=== PATIENT | male | born 1965 | race African-American/Black ===

== ENCOUNTER 2017-06-08 02:36 | Emergency (ER) | payer OTHER ==
[~2017-06-08] VITALS: Ht 190.5 cm; Wt 106.6 kg
--- NOTE | ~2017-06-08 | EKG ---
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: ZANDER : 1965 Requested By: Yandy Blackmon Order Number: [id number] MD: Giovanni Ruiz Measurements Intervals [place] Rate: 68 P: 45 ME: 175 QRS: -27 QRSD: 101 T: 12 QT: 414 QTc: 441 Interpretive Statements Sinus rhythm Borderline left axis deviation Baseline wander in lead(s) I,III,aVL Compared to ECG 07/27/2012 23:29:15 No significant changes Electronically Signed On 06-08-2017 8:03:07 CDT by Giovanni Ruiz [email or web address] <ELECTRONICALLY SIGNED> By: Giovanni Ruiz MD, [facility] 06/08/17 08 0244 0244 Giovanni Ruiz MD, [facility] /EPI
[~2017-06-08 02:36] MED LIST: BENICAR40 MG PO; MAXZIDE 75-501 EAC1; NORCO 5-325 TA1 EACH PO
[2017-06-08 03:06] LABS: HEMATOCRIT 36.4 % (42.0-52.0); HEMOGLOBIN 12.3 gm/dL (14.0-18.0); MCH 31.5 pg (26.0-34.0); MCHC 33.7 g/dL (28.0-37.0); MCV 93.5 fL (80.0-100.0); PLATELET COUNT 361 thou/uL (150-400); RBC 3.89 mil/uL (4.50-6.00); RDW 14.7 % (10.5-14.5); WBC 8.2 thou/uL (4.0-11.0)
[2017-06-08] MEDS ORDERED: WELLBUTRIN SR150 MG PO (03:12)
[2017-06-08] MEDS ORDERED: MAXZIDE-25 MG1 EACH PO (03:13)
[2017-06-08] MEDS ORDERED: ARIPIPRAZOLE10 MG PO (03:14)
[2017-06-08] MEDS ORDERED: COZAAR 50 MG TA50 M2 PO (03:16)
[2017-06-08] MEDS ORDERED: TETRACYCLINE H250 MG PO (03:17)
[2017-06-08 03:24] LABS: MANUAL DIFF YES
[2017-06-08 03:29] LABS: ANION GAP 10 mmol/L (7-16); BUN 17 mg/dL (7-18); CALCIUM 7.2 mg/dL (8.5-10.1); CHLORIDE 109 mmol/L (98-107); CO2 21 mmol/L (21-32); CREATININE 1.6 mg/dL (0.7-1.3); GLUCOSE 93 mg/dL (74-106); POTASSIUM 3.1 mmol/L (3.5-5.1); SODIUM 140 mmol/L (136-145)
[2017-06-08 03:38] LABS: ALBUMIN 1.1 g/dL (3.4-5.0); ALKALINE PHOSPHATASE 106 U/L (46-116); DIRECT BILIRUBIN < 0.1 mg/dL (<0.1-0.3); SGOT 23 U/L (15-37); SGPT 17 U/L (30-65); TOTAL BILIRUBIN 0.3 mg/dL (<0.1-1.0); TOTAL PROTEIN 3.7 g/dL (6.4-8.2); TROPONIN-I < 0.04 ng/mL (<0.04-0.07)
[2017-06-08 03:48] LABS: ABSOLUTE NEUTROPHILS 2.6 thou/uL (1.4-8.2); TOTAL CELL COUNT 100
[2017-06-08] MEDS ORDERED: PEPCID40 MG PO (05:00)
[2017-06-08] MEDS ORDERED: NORCO 5-325 TA1 EACH PO (05:05)
[2017-06-08 05:10] VITALS: BP 126/92
[2017-06-08] MEDS ORDERED: ZOFRAN ODT4 MG PO (15:44)
== END 2017-06-08 05:11 | disposition home or self-care (01) ==
LOC: ER 02:36
PROVIDERS: Emergency Medicine
DX: K21.9 Gastro-esophageal reflux disease without esophagitis (principal); R07.9 Chest pain, unspecified; I10 Essential (primary) hypertension; M19.90 Unspecified osteoarthritis, unspecified site; F17.210 Nicotine dependence, cigarettes, uncomplicated; Z98.890 Other specified postprocedural states

== ENCOUNTER 2017-06-08 11:35 | Emergency (ER) | payer OTHER ==
[~2017-06-08] VITALS: Ht 190.5 cm; Wt 104.3 kg
[~2017-06-08 11:35] MED LIST changes: +ARIPIPRAZOLE10 MG PO; +COZAAR 50 MG TA50 M2 PO; +MAXZIDE-25 MG1 EACH PO; +PEPCID40 MG PO; +TETRACYCLINE H250 MG PO; +WELLBUTRIN SR150 MG PO
[2017-06-08 12:19] LABS: ABSOLUTE NEUTROPHILS 2.6 thou/uL (1.4-8.2); BASOPHILS 1.6 % (0.0-2.0); EOSINOPHILS 1.7 % (0.0-3.0); HEMATOCRIT 39.5 % (42.0-52.0); HEMOGLOBIN 13.7 gm/dL (14.0-18.0); LYMPHOCYTES 52.4 % (24.0-44.0); MCH 32.1 pg (26.0-34.0); MCHC 34.6 g/dL (28.0-37.0); MCV 92.8 fL (80.0-100.0); PLATELET COUNT 422 thou/uL (150-400); POLYS 37.3 % (36.0-66.0); RBC 4.26 mil/uL (4.50-6.00); RDW 15.1 % (10.5-14.5); WBC 7.1 thou/uL (4.0-11.0)
[2017-06-08 12:24] LABS: MANUAL DIFF NO
[2017-06-08 14:29] LABS: CALCIUM 8.7 mg/dL (8.5-10.1); CREATININE 1.7 mg/dL (0.7-1.3)
[2017-06-08 14:30] LABS: POTASSIUM 4.3 mmol/L (3.5-5.1)
[2017-06-08 14:35] LABS: URINE BILIRUBIN NEGATIVE (Negative); URINE BLOOD 1+ (Negative); URINE COLOR YELLOW; URINE GLUCOSE-RANDOM* NEGATIVE (Negative); URINE KETONES NEGATIVE (Negative); URINE LEUKOCYTES-REFLEX NEGATIVE (Negative); URINE PROTEIN (DIPSTICK) 3+ (Negative); URINE UROBILINOGEN 0.2 E.U./dl (0.2-1.0)
[2017-06-08 14:44] LABS: CASTS None Seen /LPF (None Seen); CRYSTALS None Seen /LPF (None Seen); SQUAMOUS None Seen /LPF (0-3); URINE RBC 0-2 Rare /HPF (0-2); URINE WBC-REFLEX 0-5 Rare /HPF (0-5)
[2017-06-08 14:50] LABS: ALBUMIN 1.5 g/dL (3.4-5.0); TOTAL BILIRUBIN 0.4 mg/dL (<0.1-1.0)
[2017-06-08] MEDS ORDERED: ZOFRAN ODT4 MG PO (15:44)
[2017-06-08 16:03] VITALS: BP 109/64
== END 2017-06-08 16:04 | disposition home or self-care (01) ==
LOC: ER 11:35
PROVIDERS: Emergency Medicine
DX: K29.00 Acute gastritis without bleeding (principal); I10 Essential (primary) hypertension; E78.00 Pure hypercholesterolemia, unspecified; M19.90 Unspecified osteoarthritis, unspecified site; F17.210 Nicotine dependence, cigarettes, uncomplicated; Z90.49 Acquired absence of other specified parts of digestive tract; Z98.890 Other specified postprocedural states

== ENCOUNTER 2017-06-10 08:11 | Observation (INO) | payer OTHER ==
[~2017-06-10] VITALS: Ht 190.5 cm; Wt 104.3 kg
--- NOTE | ~2017-06-10 | EKG ---
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 : 1965 Requested By: Brian Tejada Order Number: [id number] MD: Giovanni Ruiz Measurements Intervals [place] Rate: 64 P: 51 [place]: 174 QRS: -38 QRSD: 100 T: 18 QT: 423 QTc: 437 Interpretive Statements Sinus rhythm Left axis deviation Poor R wave progression Compared to ECG 06/08/2017 02:44:23 No significant change was found Electronically Signed On 06-12-2017 13:35:22 CDT by Giovanni Ruiz [email or web address] <ELECTRONICALLY SIGNED> By: Giovanni Ruiz MD, [facility] 06/12/17 1335 1226 122 Giovanni Ruiz MD, [facility] /EPI
--- NOTE | ~2017-06-10 | HC ---
[facility] [place] [address] CONSULTATION Name: PAULETTE HAYWARD Caden Room #: 422-P [facility] Luz Morrison#: [id number] Admission: 06/10/17 Attend Phys: Jo Ann You Discharge: 06/13/17 Date of : 61 Report #: [id number] THIS REPORT FOR: //name// CC: Jo Ann Quezada DATE OF SERVICE: 06/11/2017 REQUESTING PROVIDER: Jo Ann You MD REASON FOR CONSULTATION: GERD. HISTORY OF PRESENT ILLNESS: This is a 51-year-old male who has been experiencing approximately 3-4 weeks of intermittent fairly severe upper abdominal pain. When it originally began, he presented to [facility] and he ended up having a cholecystectomy at that time thinking that this was biliary in source. Unfortunately, his symptoms have continued where every 2-3 days he has fairly significant upper abdominal discomfort. Sometimes it wakes him up at night and then it generally just goes away for 2 or 3 days and then it recurs. The patient has had an EGD done just about 3 weeks ago as well at [facility]. He was told things looked okay, but he was diagnosed with H. pylori. Details of this are unknown. All of these things were done at [facility]; none of that was done here. The patient presented to this Emergency Department yesterday and has been admitted for further evaluation. PAST MEDICAL HISTORY: Pertinent for the above-noted cholecystectomy. He has also had a hip arthroplasty as well as back surgeries. He is disabled because of chronic back pain apparently. CURRENT MEDICATIONS: Include fentanyl, morphine, Pepcid, Abilify, Wellbutrin, Cozaar, MiraLax that is being given p.r.n., Zofran p.r.n., Ambien p.r.n. ALLERGIES: There are no known drug allergies. FAMILY AND SOCIAL HISTORY: Noncontributory. PHYSICAL EXAMINATION: ABDOMEN: Soft. Bowel sounds are present and normoactive. No hepatosplenomegaly. No masses palpated. There is tenderness in the epigastrium without peritoneal signs. VITAL SIGNS: Unremarkable. He has been afebrile. LABORATORY DATA: Electrolytes are normal. BUN is normal, creatinine is 1.9. AST is 39, lipase is 131, total bilirubin is 0.3, alkaline phosphatase is 138, ALT is 25, albumin is 1.6. White count is normal, hemoglobin is 13.4, platelet count is 404,000. [address] [address] CONSULTATION Name: PAULETTE HAYWARD Room #: 422-P [facility] Morrison#: [id number] Admission: 06/10/17 Attend Phys: Jo Ann You Discharge: 06/13/17 Date of : 61 Report #: [id number] IMPRESSION: Recurrent upper abdominal pain that predates a cholecystectomy. The patient just had an EGD about 3 weeks ago, he reports, at [facility]. There is apparent notion that I would be doing an EGD now, but he just had one 3 weeks ago. Etiology of his recurrent pain is unclear at this time. RECOMMENDATIONS: 1. Increase MiraLax to a scheduled dose of 3 times a day for now. 2. Add an empiric proton pump inhibitor b.i.d. 3. Okay to feed. 4. Check hepatobiliary scan to rule out a bile leak pending that further thoughts. <ELECTRONICALLY SIGNED> By: Kip Grove MD 06/14/17 1005 0636 1327 Graham Ramos MD /nt
[~2017-06-10 08:11] MED LIST changes: +ZOFRAN ODT4 MG PO
[2017-06-10 08:12] VITALS: BP 142/100
[2017-06-10 08:39] LABS: ABSOLUTE NEUTROPHILS 5.4 thou/uL (1.4-8.2); BASOPHILS 1.4 % (0.0-2.0); EOSINOPHILS 1.9 % (0.0-3.0); HEMATOCRIT 38.1 % (42.0-52.0); HEMOGLOBIN 13.4 gm/dL (14.0-18.0); LYMPHOCYTES 38.5 % (24.0-44.0); MCH 32.5 pg (26.0-34.0); MCHC 35.2 g/dL (28.0-37.0); MCV 92.2 fL (80.0-100.0); MONOCYTES 7.4 % (1.0-8.0); PLATELET COUNT 404 thou/uL (150-400); POLYS 50.8 % (36.0-66.0); RBC 4.14 mil/uL (4.50-6.00); RDW 15.2 % (10.5-14.5); WBC 10.6 thou/uL (4.0-11.0)
[2017-06-10 08:40] LABS: MANUAL DIFF NO
[2017-06-10] MEDS ORDERED: ABILIFY10 MG PO (08:48)
[2017-06-10 08:52] LABS: CALCIUM 9.1 mg/dL (8.5-10.1); CREATININE 1.9 mg/dL (0.7-1.3); POTASSIUM 4.2 mmol/L (3.5-5.1)
[2017-06-10 08:57] LABS: ALBUMIN 1.6 g/dL (3.4-5.0); TOTAL BILIRUBIN 0.3 mg/dL (<0.1-1.0); TOTAL PROTEIN 6.3 g/dL (6.4-8.2)
[2017-06-10 11:04] VITALS: BP 136/90
[2017-06-10 11:46] VITALS: BP 134/95
[2017-06-10 11:56] VITALS: BP 134/95
[2017-06-10 15:42] VITALS: BP 143/92
[2017-06-10 20:00] VITALS: BP 118/80
[2017-06-11 04:00] VITALS: BP 119/81
[2017-06-11 08:00] VITALS: BP 123/83
[2017-06-11 11:19] LABS: HEMATOCRIT 32.9 % (42.0-52.0); MCH 32.4 pg (26.0-34.0); MCHC 34.7 g/dL (28.0-37.0); MCV 93.5 fL (80.0-100.0); RBC 3.52 mil/uL (4.50-6.00); RDW 15.1 % (10.5-14.5); WBC 8.4 thou/uL (4.0-11.0)
[2017-06-11 11:20] LABS: HEMOGLOBIN 11.4 gm/dL (14.0-18.0)
[2017-06-11 16:00] VITALS: BP 115/79
[2017-06-11 19:27] VITALS: BP 137/90
[2017-06-12 04:18] VITALS: BP 139/83
[2017-06-12 07:21] VITALS: BP 145/94
[2017-06-12 16:53] VITALS: BP 146/89
[2017-06-12 20:26] VITALS: BP 149/81
[2017-06-13 04:00] VITALS: BP 159/95
[2017-06-13 06:38] LABS: ALBUMIN 1.4 g/dL (3.4-5.0); CALCIUM 8.5 mg/dL (8.5-10.1); CREATININE 1.9 mg/dL (0.7-1.3); TOTAL BILIRUBIN 0.4 mg/dL (<0.1-1.0); TOTAL PROTEIN 5.6 g/dL (6.4-8.2)
[2017-06-13 07:33] VITALS: BP 158/92
[2017-06-13] MEDS ORDERED: SENOKOT-S1 TA1 PO (12:48)
[2017-06-13 13:18] VITALS: BP 158/92
== END 2017-06-13 13:49 | disposition home or self-care (01) ==
LOC: ER 08:11 → 4E 10:45 → EROBS 10:45 → 4E 11:30
PROVIDERS: Emergency Medicine; Hospitalist
DX: R10.9 Unspecified abdominal pain (principal); K21.9 Gastro-esophageal reflux disease without esophagitis; K59.00 Constipation, unspecified; I10 Essential (primary) hypertension; M19.90 Unspecified osteoarthritis, unspecified site; E78.00 Pure hypercholesterolemia, unspecified; B96.81 Helicobacter pylori [H. pylori] as the cause of diseases classified elsewhere; F17.210 Nicotine dependence, cigarettes, uncomplicated; Z79.899 Other long term (current) drug therapy; Z90.49 Acquired absence of other specified parts of digestive tract; Z98.890 Other specified postprocedural states

== ENCOUNTER → 2017-07-07 | Outpatient (CLI) | payer OTHER ==
[~2017-07-07] VITALS: Ht 190.5 cm; Wt 104.3 kg
[~2017-07-07] MED LIST changes: +ABILIFY10 MG PO; +BACTRIM DS TAB1 EACH PO; +HYDROCODONE-AP1 EAC6 PO; +NORCO 7.5-3251 EACH PO; +SENOKOT-S1 TA1 PO; +TORSEMIDE5 MG PO
--- NOTE | ~2017-07-07 | S ---
[facility] [place] [address] SURGICAL PATH RPT PROCEDURE Name: LIBAN HAYWARD Room #: [facility].#: [id number] Admission: 07/07/17 Date of : 61 Discharge: Report #: [id number] Path Case #: [id number] PATHOLOGY REPORT COLLECTION DATE: 07/07/2017 RECEIVED DATE: 07/07/2017 SUBMITTING PHYS: Dr. Dilshad Camara OTHER PHYS: ADDENDUM REPORT (Order Date: 07/08/2017 00:00) ADDENDUM COMMENT: Please see next page for scanned image of report submitted by [facility] [employer] objects consultant pathologist, Alivia Bello M.D. (LATOYAW:nazanin; d/t: 07/11/2017) ELECTRONICALLY SIGNED BY: Jessica Storm M.D. DATE/TIME:07/13/2017 14:11 SPECIMEN(S) RECEIVED: A.Left kidney renal biopsy * * * * * * * * * * * * FINAL DIAGNOSIS: Kidney, "kidney biopsy," image-guided needle core biopsy: - Amyloidosis, AL (lambda light chain)-type. - Global glomerulosclerosis (). - Interstitial fibrosis and tubular atrophy, moderate. COMMENT: This case was sent to [facility]. Their report will be attached as an addendum. Please see separate "scanned image" reports under laboratories. (LATOYAW:; 07/13/2017) PATHOLOGIST: Jessica Storm M.D. REPORT ELECTRONICALLY SIGNED BY: Jessica Storm M.D. DATE/TIME: 07/13/2017 14:10 * * * * * * * * * * * * GROSS PATHOLOGY: A. Received is a renal pathology kit on Liban Hayward (per requisition slip). It consists of a prefilled formalin container which contains to red brown tissue cores measuring 0.5 and 0.7 cm. [facility] [address] [place] [address] SURGICAL PATH RPT PROCEDURE Name: PANFILOLIBAN MELCHOR N Room #: [facility].#: [id number] Admission: 07/07/17 Date of : 61 Discharge: Report #: [id number] Path Case #: [id number] The specimen is forwarded to an outside laboratory for further processing. B. received is a renal pathology kit on PanfiloLiban (per requisition slip). It consists of a prefilled container of Isaiah's solution containing a tissue core, 0.4 cm in greatest dimension. The specimen is forwarded to an outside laboratory for further processing. (RIP; 07/07/2017) CLINICAL HISTORY: 51 year-old -[place] male with acute and chronic renal failure and nephrotic range proteinuria. Serum creatinine is 1.6, and proteinuria is 4.5 grams. INITIAL CPT CODE(S): A; 47954 Professional services performed by [facility] at [facility] [address], [place] [address] Technical services performed by [facility] at [address] [place] [address]., [address], [place] [address]. [facility] [address] [place] [address] PHONE: [phone] DIRECTOR: Korey Barney M.D. * * * END OF REPORT * * *
[2017-07-07 12:34] VITALS: BP 124/87
[2017-07-07 13:13] LABS: HEMATOCRIT 33.3 % (42.0-52.0); HEMOGLOBIN 11.3 gm/dL (14.0-18.0); MCH 31.4 pg (26.0-34.0); MCHC 34.1 g/dL (28.0-37.0); MCV 92.2 fL (80.0-100.0); RBC 3.61 mil/uL (4.50-6.00); RDW 15.7 % (10.5-14.5); WBC 9.4 thou/uL (4.0-11.0)
[2017-07-07 13:21] LABS: CALCIUM 7.9 mg/dL (8.5-10.1); CREATININE 1.7 mg/dL (0.7-1.3); POTASSIUM 3.6 mmol/L (3.5-5.1)
[2017-07-07 13:27] LABS: PROTIME 9.7 Seconds (9.3-11.4)
[2017-07-07 14:02] VITALS: BP 136/93
[2017-07-07 14:05] VITALS: BP 130/71
[2017-07-07 14:10] VITALS: BP 122/92
[2017-07-07 14:15] VITALS: BP 127/85
== END | disposition home or self-care (01) ==
LOC: ULTRA 10:25 → SPEC 12:00 → ULTRA 12:00
PROVIDERS: Radiology Diagnostic Radiology
DX: N26.9 Renal sclerosis, unspecified (principal); E85.8 Other amyloidosis; I10 Essential (primary) hypertension; E78.5 Hyperlipidemia, unspecified; K21.9 Gastro-esophageal reflux disease without esophagitis; M19.90 Unspecified osteoarthritis, unspecified site; F17.210 Nicotine dependence, cigarettes, uncomplicated; Z90.49 Acquired absence of other specified parts of digestive tract; Z98.890 Other specified postprocedural states; Z96.641 Presence of right artificial hip joint; Z79.899 Other long term (current) drug therapy

== ENCOUNTER 2017-08-03 17:16 | Outpatient (CLI) | payer OTHER ==
[~2017-08-03] VITALS: Ht 190.5 cm; Wt 108.9 kg
[~2017-08-03 17:16] MED LIST changes: -BACTRIM DS TAB1 EACH PO; -NORCO 7.5-3251 EACH PO; -TORSEMIDE5 MG PO
== END 2017-08-03 19:09 | disposition home or self-care (01) ==
LOC: ULTRA 19:09
DX: I82.432 Acute embolism and thrombosis of left popliteal vein (principal); E85.9 Amyloidosis, unspecified; R09.89 Other specified symptoms and signs involving the circulatory and respiratory systems; R07.9 Chest pain, unspecified; M79.89 Other specified soft tissue disorders

== ENCOUNTER → 2017-08-09 | Outpatient (CLI) | payer OTHER | LOC: NUC 08:37 | DX: M47.896 Other spondylosis, lumbar region (principal); M47.894 Other spondylosis, thoracic region; M47.892 Other spondylosis, cervical region ==

== ENCOUNTER 2017-08-27 13:07 | Emergency (ER) | payer OTHER ==
[~2017-08-27] VITALS: Ht 193 cm; Wt 90.7 kg
[~2017-08-27 13:07] MED LIST changes: +BACTRIM DS TAB1 EACH PO; +NORCO 7.5-3251 EACH PO; +TORSEMIDE5 MG PO
== END 2017-08-27 13:40 | disposition home or self-care (01) ==
LOC: ER 13:07
DX: D18.00 Hemangioma unspecified site (principal); I10 Essential (primary) hypertension; M19.90 Unspecified osteoarthritis, unspecified site; E78.00 Pure hypercholesterolemia, unspecified; Z98.890 Other specified postprocedural states; I82.409 Acute embolism and thrombosis of unspecified deep veins of unspecified lower extremity; F17.210 Nicotine dependence, cigarettes, uncomplicated

== ENCOUNTER 2018-01-12 10:50 | Inpatient (IN) | payer OTHER ==
[~2018-01-12] VITALS: Ht 190.5 cm; Wt 94.8 kg
--- NOTE | ~2018-01-12 | EKG ---
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 : 1965 Requested By: Altagracia Seymour Order Number: [id number] MD: Kade Landeros Measurements Intervals [place] Rate: 72 P: 69 [place]: 168 QRS: -59 QRSD: 100 T: 14 QT: 421 QTc: 461 Interpretive Statements Sinus rhythm Left anterior fascicular block Compared to ECG 06/10/2017 12:26:32 Left anterior fascicular block now present Left-axis deviation no longer present Poor R-wave progression no longer present Electronically Signed On 01-12-2018 14:01:51 CDT by Kade Landeros [email or web address] <ELECTRONICALLY SIGNED> By: Kade Landeros MD 01/12/18 1401 1206 1206 Kade Landeros MD /EPI
--- NOTE | ~2018-01-12 | S ---
[facility] [place] [address] SURGICAL PATH RPT PROCEDURE Name: LIBAN HAYWARD Room #: 424-P DIS IN M.R.#: [id number] Admission: 01/12/18 Date of : 61 Discharge: 01/16/18 Report #: [id number] Path Case #: [id number] PATHOLOGY REPORT COLLECTION DATE: 01/13/2018 RECEIVED DATE: 01/15/2018 SUBMITTING PHYS: Dr. Kip Grove OTHER PHYS: Dr. Tyree Winkler ADDENDUM REPORT (Order Date: 01/17/2018 10:51) ADDENDUM COMMENT: Addendum is issued subsequent to reviewing well-controlled stains. Block C1 Special stain GMS - No definite fungal elements identified. *CMV immunohistochemical stain - No definite CMV identified. *HSV1 immunohistochemical stain - No definite herpes identified. The originally rendered diagnosis remains unchanged. (IUV; 01/17/2018) *This test was developed and its performance characteristics determined by [facility]. It has not been cleared or approved by the U.S. Food and Drug Administration. The FDA has determined that such clearance or approval is not necessary. This test is used for clinical purposes. It should not be regarded as investigational or for research. This laboratory is certified under the Clinical Laboratory Improvement Amendments of 1988 (CLIA) as qualified to perform high complexity clinical laboratory testing. Professional services performed by [facility] at [facility] [address], [place] [address] Technical services performed by [facility] at [address] [place] [address], [address] [place] [address]. ELECTRONICALLY SIGNED BY: Viola Steve M.D. DATE/TIME:01/17/2018 16:20 SPECIMEN(S) RECEIVED: A.Duodenum bx B.Gastritis C.Esophagitis bx * * * * * * * * * * * * [facility] [address] [place] [address] SURGICAL PATH RPT PROCEDURE Name: LIBAN HAYWARD Room #: 424-P [facility] IN M.R.#: [id number] Admission: 01/12/18 Date of : 61 Discharge: 01/16/18 Report #: [id number] Path Case #: [id number] FINAL DIAGNOSIS: A. Small bowel mucosa, duodenum, rule out sprue, endoscopic biopsy: - No diagnostic abnormalities present. - Negative for villous blunting or increase in intraepithelial lymphocytes. B. Gastric mucosa, gastritis rule out H. pylori, endoscopic biopsy: - Moderate reactive gastropathy. - Negative for intestinal metaplasia or atrophy. - Negative for Helicobacter pylori. C. Squamous mucosa, esophagitis, rule out CMV, Ely, herpes, endoscopic biopsy: - Marked active esophagitis with ulceration. - Negative for viral inclusion, please see comment. - Negative for intestinal metaplasia or dysplasia. (IUV:flakito; 01/16/2018) COMMENT: Well-controlled Helicobacter pylori immunohistochemical stain performed on Block B1 - Negative CMV and HSV-1 immunohistochemical stains are ordered along with a S fungal special stain on Block C1. The results of these will be reported in an addendum to follow. (IUV:flakito; 01/16/2018) PATHOLOGIST: Viola Steve M.D. REPORT ELECTRONICALLY SIGNED BY: Viola Steve M.D. DATE/TIME: 01/16/2018 15:43 * * * * * * * * * * * * GROSS PATHOLOGY: A. Received in formalin labeled, "Liban Hayward, duodenum rule out sprue," are 4 fragments of osei soft tissue measuring between 0.2 x 0.2 x 0.1 cm and 0.8 x 0.3 x 0.1 cm. They are entirely submitted in cassette A1. B. Received in formalin labeled, "Liban Hayward, gastritis rule out H. pylori," are multiple fragments of osei soft tissue measuring 1.0 x 0.7 x 0.2 in aggregate. They are entirely submitted in cassette B1. C. Received in formalin labeled, "Liban Hayward, esophagitis BX rule out CMV, Ely, herpes," are 3 fragments of osei soft tissue measuring between 0.1 x 0.1 x 0.1 cm and 0.5 x 0.2 x 0.1 cm. They are entirely submitted in cassette C1. (SDY; 01/15/2018) CLINICAL HISTORY: Hematemesis, nausea, vomiting, abdominal pain, history H. pylori [address] [address] SURGICAL PATH RPT PROCEDURE Name: LIBAN HAYWARD [facility] Room #: 424-P DIS IN M.R.#: [id number] Admission: 01/12/18 Date of : 61 Discharge: 01/16/18 Report #: [id number] Path Case #: [id number] Gastritis, esophagitis A-Rule out sprue B-Rule out H pylori history H. pylori C-Rule out CMV, ely, herpes INITIAL CPT CODE(S): A; 08586 B; 64620, 68814 C; 38092, 43489, 39[address], 137[address] Professional services performed by [facility] at [facility] [address], [place] [address] Technical services performed by [facility] at [address] [place] [address], [place] [address]. [facility] [address] [place] [address] PHONE: [phone] DIRECTOR: Korey Barney M.D. * * * END OF REPORT * * *
--- NOTE | ~2018-01-12 | HC ---
[facility] [place] [address] CONSULTATION Name: PAULETTE HAYWARD Room #: 424-P ADM IN M.R.#: [id number] Admission: 01/12/18 Attend Phys: Tyree Mitchell MD Discharge: Date of : 61 Report #: [id number] THIS REPORT FOR: //name// CC: Tyree Winkler MD DATE OF SERVICE: 01/13/2018 HISTORY OF PRESENT ILLNESS: The patient is a 52-year-old male with a recent history of recurrent nausea, vomiting and mid epigastric abdominal pain. He did report some episodes of coffee-ground type emesis. He also complains of some dysphagia as well as odynophagia. He has past medical history of amyloidosis with chronic renal insufficiency. He has had previous upper endoscopies in the past. Also H. pylori, which was apparently treated. His emesis was Hemoccult positive apparently. He does have a history of chronic back pain and does take narcotics on a regular basis. He was evaluated for similar symptoms in June of last year and underwent a cholecystectomy around that time as well as a gastric emptying study on August 09, which was normal. He had a CT scan of the abdomen and pelvis on admission last evening, which showed some bladder wall thickening, which was evident to some degree previously. No other acute appearing abnormalities were noted. The patient is already on Protonix on a daily basis. He denies any NSAID use. His hemoglobin on admission was 10.5, which is stable compared to September of 2017. He reports some improvement in his mid epigastric abdominal pain today. PAST MEDICAL HISTORY: Amyloidosis, chronic renal insufficiency, history of H. pylori, previous cholecystectomy, hypertension and history of chronic back pain. He has had previous back surgery, a right hip replacement, previous history of DVT, stem cell transplant in 11/11/2017 and hypercholesterolemia. MEDICATIONS ON ADMISSION: [place], Wellbutrin, Cozaar, Abilify, multivitamin, Zovirax, Protonix, Demadex, potassium chloride and dapsone. Unclear if the patient is on Lovenox at this time. Bactrim. REVIEW OF SYSTEMS: As per HPI. FAMILY HISTORY: Negative for colon cancer. SOCIAL HISTORY: Denies any alcohol use. He does actively smoke. ALLERGIES: No known drug allergies. PHYSICAL EXAMINATION: VITAL SIGNS: Temperature is 97.9, pulse 67, blood pressure 148/89 and respiratory rate is 16. [facility] [address] [place] [address] CONSULTATION Name: PAULETTE HAYWARD Room #: 424-P [facility].#: [id number] Admission: 01/12/18 Attend Phys: Tyree Mitchell MD Discharge: Date of : 61 Report #: [id number] GENERAL: He is alert and oriented x 3, in no acute distress. HEENT: Sclerae nonicteric. Oropharynx clear. NECK: Supple, without lymphadenopathy. CARDIOVASCULAR: Regular rate and rhythm. CHEST: Clear to auscultation bilaterally. ABDOMEN: Soft. He is mildly tender to palpation in the midepigastrium and nondistended. Normoactive bowel sounds. EXTREMITIES: No cyanosis, clubbing or edema. LABORATORY DATA: From yesterday sodium 137, potassium 4.0, chloride 103, bicarbonate 26, BUN 29 and creatinine 3.2. AST is 25, lipase 99, total bilirubin 0.4, calcium 9.3, alkaline phosphatase 138, ALT is 18, total protein 6.3 and albumin 1.8. WBC is 8.3, hemoglobin 10.5 and platelet count 349. ASSESSMENT AND PLAN: Anemia, nausea, vomiting, mid epigastric abdominal pain and coffee-ground type emesis. The patient is on Protonix on a regular basis. He does have a history of Helicobacter pylori. Unclear if he is taking Lovenox at this time. Hemoglobin is stable when compared to previous hemoglobin levels. The plan is to proceed with an upper endoscopy today for further evaluation. Continue to monitor hemoglobin closely. We will make further recommendations after endoscopy. Etiology of abdominal pain is unclear. The patient has had a previous cholecystectomy. CT scan of the abdomen and pelvis was normal. He had a previous gastric emptying study that was normal as well. Thank you for allowing me to participate in his care. <ELECTRONICALLY SIGNED> By: Kip Grove MD 01/14/18 1127 0930 1138 Kip Grove MD /nt
--- NOTE | ~2018-01-12 | P ---
[facility] [place] [address] PROCEDURE REPORT Name: PAULETTE HAYWARD Room #: 424-P [facility] IN M.R.#: [id number] Admission: 01/12/18 Attend Phys: Tyree Mitchell MD Discharge: Date of : 61 Report #: [id number] THIS REPORT FOR: //name// CC: Tyree Winkler MD DATE OF SERVICE: 01/12/2018 PROCEDURE PERFORMED: Upper endoscopy with biopsies. HISTORY OF PRESENT ILLNESS: The patient is a 52-year-old male with a history of mid epigastric abdominal pain, nausea, vomiting and coffee-ground type emesis. He has a previous history of H. pylori that was apparently treated in the past, unclear if he is taking Lovenox at this time. He is on Protonix on a daily basis. He has had a previous cholecystectomy. CT scan of the abdomen and pelvis on admission was essentially negative. Previous gastric emptying study was negative or as normal. DESCRIPTION OF PROCEDURE: The risks and benefits of the procedure were explained to the patient and those risks including but not limited to bleeding, perforation and the risk of sedation. He understood these risks and gave informed consent. Sedation was given using propofol per Anesthesia. Next, using a standard Apoforeinon upper endoscope, the scope was placed in the patient's mouth and advanced under direct vision through the esophagus, stomach and into the second portion of the duodenum. The larynx was normal in appearance. The upper and mid esophagus was normal; however, in the distal esophagus, there was some white plaquing but not classic for Esperanza esophagitis and not obvious ulceration. Of note, the patient does have complaints of odynophagia. Therefore, biopsies were obtained. There was also evidence of grade B esophagitis, likely from reflux. No evidence of bleeding. There was a mild gastritis, mostly in the gastric body and biopsies were obtained. No evidence of bleeding and no ulcerations. The pylorus was normal and patent. Mild duodenitis in the duodenal bulb, the first and second portion of the duodenum were all normal. Biopsies were obtained to rule out the possibility of celiac sprue. The scope was then withdrawn and the procedure terminated. The patient tolerated the procedure well. IMPRESSION: 1. Esophagitis, distal esophagus. Biopsies were obtained to rule out the possibility of Esperanza, cytomegalovirus and herpes. These were not distinct ulcerations nor was a classic for Esperanza, we will await biopsy results. 2. Grade B erosive esophagitis, likely secondary to reflux. 3. Mild gastritis. 4. Mild duodenitis in the duodenal bulb. [facility] [address] [place] [address] PROCEDURE REPORT Name: YESYPAULETTE WHITESIDE Room #: 424-P [facility] IN M.R.#: [id number] Admission: 01/12/18 Attend Phys: Tyree Mitchell MD Discharge: Date of : 61 Report #: [id number] RECOMMENDATIONS: 1. Await biopsy results. 2. Increase Protonix to b.i.d. 3. We will add liquid Carafate at this time. 4. Start a full liquid diet. 5. Continue to monitor hemoglobin. Thank you for allowing me to participate in his care. <ELECTRONICALLY SIGNED> By: Kip Grove MD 01/14/18 1127 0933 1149 Kip Grove MD /nt
[~2018-01-12 10:50] MED LIST changes: +CARAFATE 1 GM TA1 G1 PO; +CIPROFLOXACIN500 M1 PO; +FLAGYL500 MG PO; +PHENERGAN 25 MG25 M1 PO; +PRADAXA150 MG PO; +PROMS25 WY RECTAL
[2018-01-12 11:00] VITALS: BP 158/107
[2018-01-12 11:20] LABS: ABSOLUTE NEUTROPHILS 5.6 thou/uL (1.4-8.2); BASOPHILS 1.4 % (0.0-2.0); EOSINOPHILS 0.2 % (0.0-3.0); HEMATOCRIT 31.4 % (42.0-52.0); HEMOGLOBIN 10.5 gm/dL (14.0-18.0); LYMPHOCYTES 26.6 % (24.0-44.0); MCH 31.8 pg (26.0-34.0); MCHC 33.5 g/dL (28.0-37.0); MCV 94.8 fL (80.0-100.0); MONOCYTES 3.9 % (1.0-8.0); PLATELET COUNT 349 thou/uL (150-400); POLYS 67.9 % (36.0-66.0); RBC 3.31 mil/uL (4.50-6.00); RDW 15.6 % (10.5-14.5); WBC 8.3 thou/uL (4.0-11.0)
[2018-01-12 11:21] LABS: URINE BILIRUBIN NEGATIVE (Negative); URINE BLOOD 1+ (Negative); URINE CLARITY CLEAR; URINE COLOR YELLOW; URINE GLUCOSE-RANDOM* NEGATIVE (Negative); URINE KETONES NEGATIVE (Negative); URINE LEUKOCYTES NEGATIVE (Negative); URINE NITRITE NEGATIVE (Negative); URINE PROTEIN (DIPSTICK) 3+ (Negative); URINE SPECIFIC GRAVITY 1.015 (1.005-1.035); URINE UROBILINOGEN 0.2 E.U./dl (0.2-1.0)
[2018-01-12 11:24] LABS: CALCIUM 9.3 mg/dL (8.5-10.1); CREATININE 3.2 mg/dL (0.7-1.3)
[2018-01-12] MEDS ORDERED: UNICOMPLEX M TA1 TA1 PO (11:27)
[2018-01-12] MEDS ORDERED: DEMADEX20 MG PO (11:28)
[2018-01-12] MEDS ORDERED: PROTONIX40 M1 PO (11:28)
[2018-01-12] MEDS ORDERED: ACYCLOVIR 400400 MG PO (11:28)
[2018-01-12] MEDS ORDERED: KLOR-CON 1010 MEQ PO (11:29)
[2018-01-12 11:30] LABS: ALBUMIN 1.8 g/dL (3.4-5.0); TOTAL BILIRUBIN 0.4 mg/dL (<0.1-1.0); TOTAL PROTEIN 6.3 g/dL (6.4-8.2)
[2018-01-12] MEDS ORDERED: DAPSONE100 MG PO (11:30)
[2018-01-12 11:33] LABS: BACTERIA None Seen /HPF (None Seen); CASTS None Seen /LPF (None Seen); CRYSTALS None Seen /LPF (None Seen); SQUAMOUS None Seen /LPF (0-3); URINE RBC 3-10 Few /HPF (0-2); URINE WBC 0-5 Rare /HPF (0-5)
[2018-01-12 14:36] VITALS: BP 154/98
[2018-01-12 15:03] VITALS: BP 172/109
[2018-01-12 15:40] VITALS: BP 143/110
[2018-01-12] MEDS ORDERED: NORCO 10-325 T1 EACH PO (16:15)
[2018-01-12 19:29] VITALS: BP 136/88
[2018-01-13 04:05] VITALS: BP 151/97
[2018-01-13 07:28] VITALS: BP 148/89
[2018-01-13 08:00] VITALS: BP 148/89
[2018-01-13 11:40] LABS: CALCIUM 8.5 mg/dL (8.5-10.1); CREATININE 3.2 mg/dL (0.7-1.3); POTASSIUM 4.2 mmol/L (3.5-5.1)
[2018-01-13 15:03] VITALS: BP 140/98
[2018-01-13 20:20] VITALS: BP 167/110
[2018-01-14 05:38] VITALS: BP 155/102
[2018-01-14 08:13] VITALS: BP 140/98
[2018-01-14 11:56] LABS: HEMATOCRIT 28.1 % (42.0-52.0); HEMOGLOBIN 9.4 gm/dL (14.0-18.0); MCHC 33.3 g/dL (28.0-37.0); MCV 96.2 fL (80.0-100.0); RBC 2.92 mil/uL (4.50-6.00); RDW 15.4 % (10.5-14.5); WBC 8.6 thou/uL (4.0-11.0)
[2018-01-14 12:04] LABS: CALCIUM 8.2 mg/dL (8.5-10.1); CREATININE 2.7 mg/dL (0.7-1.3); MAGNESIUM 1.9 mg/dL (1.8-2.4); POTASSIUM 3.9 mmol/L (3.5-5.1)
[2018-01-14 15:45] VITALS: BP 134/91
[2018-01-14 19:47] VITALS: BP 146/95
[2018-01-15 04:23] VITALS: BP 151/90
[2018-01-15 07:21] LABS: HEMATOCRIT 26.9 % (42.0-52.0); HEMOGLOBIN 9.1 gm/dL (14.0-18.0); MCH 32.5 pg (26.0-34.0); MCV 95.6 fL (80.0-100.0); RBC 2.81 mil/uL (4.50-6.00); RDW 15.2 % (10.5-14.5); WBC 6.1 thou/uL (4.0-11.0)
[2018-01-15 07:25] LABS: CALCIUM 8.1 mg/dL (8.5-10.1); CREATININE 2.6 mg/dL (0.7-1.3); MAGNESIUM 1.9 mg/dL (1.8-2.4)
[2018-01-15 08:00] VITALS: BP 152/83
[2018-01-15 15:55] VITALS: BP 126/86
[2018-01-15 20:00] VITALS: BP 116/78; BP 164/99
[2018-01-16 05:30] VITALS: BP 142/87
[2018-01-16 06:05] LABS: HEMATOCRIT 26.5 % (42.0-52.0); HEMOGLOBIN 8.9 gm/dL (14.0-18.0); MCH 31.9 pg (26.0-34.0); MCHC 33.6 g/dL (28.0-37.0); MCV 94.8 fL (80.0-100.0); RBC 2.79 mil/uL (4.50-6.00); RDW 15.1 % (10.5-14.5); WBC 5.9 thou/uL (4.0-11.0)
[2018-01-16 06:31] LABS: CREATININE 2.4 mg/dL (0.7-1.3); MAGNESIUM 1.9 mg/dL (1.8-2.4); POTASSIUM 3.9 mmol/L (3.5-5.1)
[2018-01-16 07:20] VITALS: BP 157/11
[2018-01-16 10:34] VITALS: BP 148/97
[2018-01-16] MEDS ORDERED: PROTONIX40 M1 PO (13:53)
[2018-01-16] MEDS ORDERED: CARAFATE 11 GM/10 M1 PO (13:53)
[2018-01-16 14:01] VITALS: BP 148/97
== END 2018-01-16 14:39 | disposition home or self-care (01) | DRG 380 ==
LOC: ER 10:50 → 4E 13:41 → EROBS 13:41 → 4E 15:10 → ENTRNSPT 01-16 14:26 → EDTRNSPTSTS 01-16 14:29 → 4E 01-16 14:39
PROVIDERS: Internal Medicine; Physician Assistant
PROC: 0DB98ZX Excision of Duodenum, Via Natural or Artificial Opening Endoscopic, Diagnostic (ICD-10-PCS; principal; 2018-01-12)
PROC: 0DB68ZX Excision of Stomach, Via Natural or Artificial Opening Endoscopic, Diagnostic (ICD-10-PCS; 2018-01-12)
PROC: 0DB38ZX Excision of Lower Esophagus, Via Natural or Artificial Opening Endoscopic, Diagnostic (ICD-10-PCS; 2018-01-12)
DX: K22.11 Ulcer of esophagus with bleeding (principal); E43 Unspecified severe protein-calorie malnutrition; N17.9 Acute kidney failure, unspecified; E85.9 Amyloidosis, unspecified; K29.71 Gastritis, unspecified, with bleeding; K29.81 Duodenitis with bleeding; Z96.641 Presence of right artificial hip joint; M19.90 Unspecified osteoarthritis, unspecified site; F17.200 Nicotine dependence, unspecified, uncomplicated; N18.9 Chronic kidney disease, unspecified; I12.9 Hypertensive chronic kidney disease with stage 1 through stage 4 chronic kidney disease, or unspecified chronic kidney disease; R13.10 Dysphagia, unspecified; M54.9 Dorsalgia, unspecified; G89.29 Other chronic pain; E78.00 Pure hypercholesterolemia, unspecified; D64.9 Anemia, unspecified; K59.00 Constipation, unspecified; Z79.899 Other long term (current) drug therapy; Z90.49 Acquired absence of other specified parts of digestive tract; Z86.718 Personal history of other venous thrombosis and embolism
CPT/HCPCS: 10183; 62110; 62900; 70005